=== PATIENT | female | born 1985 | race Caucasian/White ===

== ENCOUNTER 2021-03-06 04:26 | Emergency (ER) | payer OTHER ==
[2021-03-06 05:25] LABS: BASOPHIL 0.1 % (0-2); EOSINOPHIL 0.1 % (0-5); HCT 46.6 % (37.0-47.0); HGB 15.4 g/dl (12.5-16.0); LYMPHOCYTE 26.7 % (15-48); MCH 30.1 pg (25.0-31.0); MCV 91.2 fL (78.0-100.0); MONOCYTE 8.6 % (0-12); MPV 10.7 fL (6.0-9.5); NEUTROPHIL 64.4 % (41-80); NRBC 0; PLT 159 K/uL (150-400); RBC 5.11 M/uL (4.20-5.40); RDW 12.8 % (11.5-14.0); WBC 7.6 K/uL (4.0-10.5)
[2021-03-06 05:41] LABS: INR 0.91 (0.9-1.2); PROTHROMBIN TIME 11.7 SECONDS (11.8-13.4); PTT 33.7 SECONDS (24.4-34.7)
[2021-03-06 05:42] LABS: D-DIMER 0.31 ug/mLFEU (0.00-0.41)
[2021-03-06 06:00] LABS: PRO-BNP 22 pg/mL (<125)
[2021-03-06 06:27] LABS: ALBUMIN 4.1 g/dL (3.4-5.0); BILIRUBIN - TOTAL 0.6 mg/dL (0.2-1.0); BUN/CREAT RATIO (CALC) 13.3 RATIO; C-REACTIVE PROTEIN 0.3 mg/dL (<=0.90); CREATININE 0.6 mg/dL (0.51-0.95); GLOBULIN (CALCULATION) 3.9 g/dL; MAGNESIUM 2.3 mg/dL (1.8-2.4); POTASSIUM 3.8 mmol/L (3.5-5.1)
[2021-03-06] MEDS ORDERED: ONDANSETRON ODT4 MG PO (07:03)
[2021-03-06] MEDS ORDERED: MEDROL 4MG DOSEP4 MG PO (07:03)
[2021-03-06] MEDS ORDERED: TESSALON PERLE100 M1 PO (07:03)
== END 2021-03-06 07:17 | disposition home or self-care (01) ==
LOC: FER 04:26
PROVIDERS: Emergency Medicine
DX: U07.1 COVID-19 (principal)
CPT/HCPCS: 36415; 80053; 82728; 83615; 83735; 83880; 84145; 84484; 85025; 85379; 85610; 85730; 86140; 93005; U0002